=== PATIENT | male | born 1950 | race Caucasian/White ===

== ENCOUNTER 2016-12-17 08:39 | Outpatient (CLI) | payer MEDICARE ==
--- NOTE | 2016-12-17 13:24 | CT ---
CT OF THE ABDOMEN AND PELVIS WITH AND WITHOUT IV CONTRAST: INDICATIONS: History of prostate cancer, status post prostatectomy with hip pain. COMPARISON: Prior exam dated 10/19/2015 and prior bone scan dated 06/05/2016. FINDINGS: The large right renal peripelvic cyst is enlarged, now measuring 12.7 x 7.2 cm. There is now a smal l, 3 mm calculus involving the inferior pole of the right kidney. There are small right renal cysts present. No hydronephrosis is demonstrated. no gross, abnormally enhancing urothelial lesion is e vident. No focal filling defect is evident within the opacified renal collecting system. There are post surgical changes of a total prostatectomy, which are similar. No pathologically enla rged lymph nodes are evident within the pelvis or retroperitoneal region. There are moderate calcif ications involving the abdominopelvic vasculature. There are calcified lymph nodes involving the right infrahilar region. There is a calcified granulo ma within the right lower lobe. There is a small hiatal hernia. The adrenal glands, spleen, and li anastasia appear within normal limits. There has been interval enlargement of the sclerotic metastatic lesion involving the right anterior iliac wing on image 175 of series 3. The additional sclerotic metastasis involving the right ilium on image 174 of series 3 is stable. The sclerotic metastatic lesion involving the left L3 pedicle i s stable. IMPRESSION: 1. Worsening osseous metastatic disease. 2. Slight interval enlargement of the large right peripelvic cyst. 3. New right nephrolithiasis. No hydronephrosis or gross urothelial lesion is evident. 4. Other findings as above. POS: [facility]
[2016-12-17] MEDS ORDERED: Iopamidol 370 76% 100 ML VIAL ONE (15:57)
--- NOTE | 2016-12-17 16:19 | NM ---
WHOLE BODY BONE SCAN: Date: 12/17/16 HISTORY: Prostate cancer. RADIOPHARMACEUTICAL: 32 mCi technetium-99m MDP injected intravenously. COMPARISON: 06/05/16. CORRELATION: CT abdomen and pelvis of today and CT thoracic spine of 12/07/15. FINDINGS: There is interval increase in size of the abnormal uptake in the right iliac wing since the last jelly dy. There is mild increased uptake in the right-sided bridging osteophyte at T6-7 level (seen on the CT scan of 12/07/15). Increased uptake in the shoulders, elbows, wrists, hands, knees, ankles, and feet, consistent with d egenerative changes, are again seen. No new foci of increased uptake is seen in the skeleton. Tracer excretion through the kidneys is wit hin normal limits. IMPRESSION: Interval worsening of osseous metastatic disease since 06/05/16. POS: [facility]
== END 2016-12-17 08:40 | disposition home or self-care (01) ==
LOC: CT 08:39
PROVIDERS: ATTEND Urology
DX: C79.82 Secondary malignant neoplasm of genital organs (principal); C61 Malignant neoplasm of prostate; C79.51 Secondary malignant neoplasm of bone; N20.0 Calculus of kidney; K76.89 Other specified diseases of liver
CPT/HCPCS: 74178; 78306; A9503

== ENCOUNTER 2017-09-22 08:22 | Outpatient (CLI) | payer MEDICARE ==
--- NOTE | 2017-09-22 09:45 | CT ---
CT ABDOMEN AND PELVIS: DATE: 09/22/17. COMPARISON: 10/19/15 and 11/01/13. HISTORY: Restaging for prostate cancer. TECHNIQUE: Serial axial CT imaging obtained at 5 mm intervals from the lung bases through the pubic symphysis wi th IV contrast. Coronal reformatted imaging obtained. FINDINGS: The imaged lung bases appear grossly unremarkable. No free intraperitoneal air or fluid is seen. The liver, spleen, gallbladder, pancreas, and right adrenal gland are unremarkable. There is a small adrenal nodule on the left measuring up to approximately 1.1 cm, not significantly c hanged when compared to CT examination dating back to 11/01/13. The left kidney is unremarkable. There is a punctate nonobstructing stone in the upper pole of the right kidney, best seen on coronal image 97. There is a nonobstructing stone in the lower pole of the right kidney measuring in the 4 m m range. Multiple prominent right renal cysts are noted, stable when compared to multiple prior examinations. Small bilateral stable fat-containing inguinal hernias are present. The patient is status post prostatectomy. Postoperative clips are noted within the pelvis. There is no evidence for bowel inflammatory change or obstruction. There is mild atherosclerotic calcification of the abdominal aorta and its branches. There is no inguinal lymphadenopathy. There are no enlarged pelvic lymph nodes seen. There is no retroperitoneal lymphadenopathy noted. Review of the osseous structures demonstrates multiple sclerotic lesions suspicious for extensive oss eous metastatic disease. There is a lesion within the superior/lateral aspect of the acetabulum on t he right, new, measuring 2.4 cm in AP dimension. There is a subtle sclerotic lesion within the media l aspect of the acetabulum on the left measuring 1.3 cm, new as well. There is an expansile scleroti c lesion within the anterior aspect of the iliac wing on the right measuring 3.9 cm, markedly increas ed in size when compared to the prior examination. There is a new lesion within the left sacral alae measuring 1 cm. There is a lesion within the inferior anterior aspect of the L4 vertebral body, new. There is a stab le left L3 pedicle lesion. New subcentimeter lesion noted within L2. There are 2 new lesions within L1. There is a lesion within T12, T10, and T9, all 3 of which are new when compared to the prior ex amination. IMPRESSION: Numerous new sclerotic osseous metastatic lesions, evidence of progression of metastatic disease. CODE T POS: [facility]
--- NOTE | 2017-09-22 12:42 | NM ---
BONE SCAN: History: Malignant neoplasm of prostate. Dose: 33 mCi Technetium 99 MDP. Technique: Anterior and posterior whole body delayed images obtained. Comparison: 06-05-16 FINDINGS/IMPRESSION: Delayed bone scan images demonstrate interval development of extensive and too numerous to count meta static lesions now throughout the skeleton. Metastatic lesions seen in the calvarium, maxilla, mandib le, cervical spine, right scapula, right clavicle, left clavicle, left humerus, numerous ribs, thorac ic spine, lumbar spine, sacrum, iliac bones, right and left femur and a proximal right tibia. This is compatible with too numerous to count extensive increasing metastatic disease. POS: [facility]
[2017-09-22] MEDS ORDERED: Iopamidol 370 76% 100 ML VIAL ONE (12:51)
== END 2017-09-22 08:23 | disposition home or self-care (01) ==
LOC: CT 08:22
PROVIDERS: ATTEND Internal Medicine Medical Oncology
DX: C79.51 Secondary malignant neoplasm of bone (principal); C61 Malignant neoplasm of prostate
CPT/HCPCS: 74177; 78306; A9503

== ENCOUNTER 2018-02-02 14:08 | Emergency (ER) | payer MEDICARE ==
[2018-02-02] MEDS ORDERED: HYDROmorphone 0.5 MG/0.5 ML SYRINGE ONE (14:41)
[2018-02-02] MEDS ORDERED: HYDROcodone/Acetaminophen 10/325 mg Tablet ONE (15:21)
== END 2018-02-02 15:38 | disposition home or self-care (01) ==
LOC: ERS 14:08
DX: C61 Malignant neoplasm of prostate (principal); G89.29 Other chronic pain; M54.6 Pain in thoracic spine; I10 Essential (primary) hypertension; Z79.891 Long term (current) use of opiate analgesic; Z79.899 Other long term (current) drug therapy
CPT/HCPCS: 96374; J1170

== ENCOUNTER 2018-02-05 08:11 | Outpatient (CLI) | payer MEDICARE ==
--- NOTE | 2018-02-05 10:32 | MRI ---
MRI CERVICAL SPINE WITHOUT AND WITH CONTRAST: Date: 02/05/18 COMPARISON: Bone scan dated 09/22/17. HISTORY: Prostate cancer with bone metastasis. Evaluate for cord compression. TECHNIQUE: Multiplanar, multisequence MR images were obtained of the cervical spine without and with IV contrast . FINDINGS: There are multiple areas of abnormal marrow signal in the vertebral bodies consistent with bony metas tases. These areas demonstrate enhancement. No significant posterior extension of the vertebral pinky s is seen into the central canal to cause cord compression. No cortical breakthrough of the posterior vertebral bodies is appreciated to suggest cord compression. Visualized cord demonstrates normal signal throughout. The craniocervical junction is unremarkable. T he prevertebral and paraspinal soft tissues are unremarkable. No significant posterior bulge or protrusion is seen throughout the cervical spine. There is mild to moderate bilateral posterior facet arthrosis throughout the cervical spine. IMPRESSION: Multiple osseous metastases in the cervical spine without evidence of central canal compromise or cor d compression. POS: [facility]
[2018-02-05] MEDS ORDERED: Gadobenate Dimeglumine 529 MG/1 ML (20ML VIAL) ONE (13:22)
[2018-02-06 10:19] LABS: Estimated GFR-MDRD - POC Greater than 90
== END 2018-02-05 08:12 | disposition home or self-care (01) ==
LOC: MRI 08:11
PROVIDERS: ATTEND Radiology Radiation Oncology
DX: C79.51 Secondary malignant neoplasm of bone (principal); C61 Malignant neoplasm of prostate; M54.2 Cervicalgia
CPT/HCPCS: 36415; 72156; 80053; 82248; 82565; 83615; 84100; 84153; 84550; A9579

== ENCOUNTER 2018-03-14 09:53 | Emergency (ER) | payer MEDICARE ==
[2018-03-14 10:21] LABS: Bilirubin Negative (Negative); Blood, Urine Large (Negative); Clarity CLOUDY (Clear); Glucose, Urine (Dipstick) Negative (Negative); Leukocyte Trace (Negative); Nitrite Negative (Negative); Protein, Urine (Dipstick) 30 mg/dL (Neg-Trace); Specific Gravity, Urine 1.015 (1.002-1.036)
[2018-03-14 10:23] LABS: Bacteria/HPF None Seen HPF (None Seen); Hyaline Casts/LPF 0-3 HYALINE CAST LPF (0-3 Hyaline); RBC/HPF GREATER THAN 50-TNTC HPF (0-3); Squamous Epithelial 0-3 HPF (0-3)
[2018-03-14 10:24] LABS: #Eosinphils 0.1 thou/uL (0.0-0.7); #Lymphocytes 0.9 thou/uL (1.20-3.40); #Monocytes 0.5 thou/uL (0.11-0.59); #Neutrophils 5.9 thou/uL (1.40-6.50); %Basophils 0.1 % (0.0-1.0); %Eosinophils 1.7 % (0.0-10.0); %Lymphocytes 12.5 % (21.0-51.0); %Monocytes 6.8 % (0.0-10.0); %Neutrophils 78.9 % (42.0-75.0); Hemoglobin 11.8 g/dL (14.0-18.0); Mean Corpuscular HGB CONC 34.5 g/dL (32.0-36.0); Mean Corpuscular Hemoglobin 31.1 pg (27.0-31.0); Mean Corpuscular Volume 90.1 fL (78.0-98.0); Mean Platelet Volume 7.3 fL (7.4-10.4); Platelet Count 191 thou/uL (130-400); RBC Distribution Width 13.8 % (11.5-14.5); Red Blood Cell (RBC) Count 3.79 mill/uL (4.70-6.10); White Blood Cell (WBC) Count 7.4 thou/uL (4.8-10.8)
[2018-03-14 10:43] LABS: ALT (SGPT) 17 U/L (8-55); AST (SGOT) 22 U/L (5-34); Alkaline Phosphatase 498 U/L (40-150); Anion Gap 13 mmol/L (10-20); BUN (Urea Nitrogen) 19 mg/dL (8.4-25.7); Bilirubin, Total 0.4 mg/dL (0.2-1.2); Calc. Creatinine Clearance 0 mL/min (70-130); Calcium 8.5 mg/dL (7.8-10.44); Carbon Dioxide 23 mmol/L (23-31); Chloride 106 mmol/L (98-107); Estimated GFR-MDRD Greater than 90; Globulin 2.7 g/dL (2.4-3.5); Glucose 108 mg/dL (80-115); Potassium 3.8 mmol/L (3.5-5.1); Protein, Total 6.7 g/dL (5.8-8.1); Sodium 138 mmol/L (136-145)
[2018-03-14] MEDS ORDERED: Lidocaine 2% Jelly 5 ML TUBE TOP SCH (14:15)
--- NOTE | 2018-03-15 02:41 | CON ---
DATE OF CONSULTATION: 03/14/2018 HISTORY OF PRESENT ILLNESS: This is a 67-year-old white male I saw in the emergency room today. He is a patient of Dr. Chano Salazar. He has a history of prostate cancer, it is currently metastatic. He has been seeing Dr. Medrano and receiving second and third line of chemotherapy for this. He has had a radical prostatectomy and has also had radiation therapy. He has had off and on gross hematuria for the last week or so. It came and went, it came and went, and then it came and stayed. I talked with him earlier this morning and he tried staying at home to see if he could clear and it did not, he was passing some clots, so he came into the ER. His bladder was not distended on ultrasound and I think he had just over 100 mL. He was able to void 600 mL and I looked at his urine, it is mostly just light red to pink color, there are few small clots at the bottom of the container. He really does not look that bad. His platelet count is normal. He is afebrile with stable vital signs. I talked with him and his . I do not think he needs a Osullivan catheter and bladder irrigation, and I really do not think he even needs to be admitted as he is not at all having difficulty with urination. I think there is a very good chance that this hematuria will clear with rest and hydration which they certainly are feeling able and willing to do and would prefer that rather than coming into the hospital. I did ask him to contact Dr. Chano Salazar' office Friday. I do not know that she needs to see him, but her office does seem to know what has been going on with him. I also did talk with Dr. Medrano about him earlier today by phone. Job ID: [id number]
== END 2018-03-14 14:58 | disposition home or self-care (01) ==
LOC: ERS 09:53
DX: R31.9 Hematuria, unspecified (principal); I10 Essential (primary) hypertension; Z79.899 Other long term (current) drug therapy
CPT/HCPCS: 36415; 51798; 80053; 81003; 81015; 85025

== ENCOUNTER 2018-03-23 07:17 | Outpatient (CLI) | payer MEDICARE ==
[2018-03-23] MEDS ORDERED: Iopamidol 370 76% 100 ML VIAL ONE (09:00)
--- NOTE | 2018-03-23 09:58 | CT ---
CT ABDOMEN WITH AND WITHOUT IV CONTRAST CT PELVIS WITH AND WITHOUT IV CONTRAST: Date: 03/23/18 COMPARISON: Prior study from 11/01/13 and 12/17/16. FINDINGS: There is bibasilar linear scarring versus atelectasis. Calcified granuloma seen at the right lung bas e. Calcified right hilar lymph nodes are present. Punctate superior pole right renal calculus, as well as an approximately 4.0 mm nonobstructing inferi or pole right renal calculus are again seen. The previously described right renal cysts are again see n and are all unchanged. A few smaller subcentimeter hypodense lesions are also again seen in the rig ht kidney. Left kidney has a normal CT appearance. There is slight nodular thickening of the left adrenal gland, which is a stable finding compared to t he prior exams. The liver, spleen, pancreas, and incompletely distended urinary bladder demonstrate a normal CT appea shu. A punctate calcification is seen in the region of the pancreatic head, likely sequelae of prio r inflammatory process. Postsurgical changes related to prostatectomy are again present. Vascular calcifications are seen in the abdominal aorta and iliac arteries. Loops of small bowel are normal in caliber. No free fluid, fluid collection, or lymphadenopathy seen in the abdomen or pelvis. Innumerable sclerotic metastatic lesions are seen. However, these metastatic lesions have progressed within the spine, and visualized lower ribs, as well as involving the pelvis when compared to the sam or study in 2017, with innumerable osseous sclerotic metastatic lesions present. New sclerotic lesion is present within the intertrochanteric region of the right hip. Innumerable sclerotic metastatic le sions are now seen throughout the visualized lower thoracic, as well as the lumbar spine, and involvi ng bilateral ribs. Osseous metastatic lesions have also progressed compared to study on 09/22/17. IMPRESSION: 1. Interval increase in osseous metastatic disease with innumerable metastatic lesions now present. 2. Nonobstructing right renal calculi. 3. Large right renal cyst with smaller subcentimeter hypodense lesion within the right kidney, stati stically also likely representing cysts. 4. Remainder of findings are as described above. POS: [facility]
== END 2018-03-23 07:18 | disposition home or self-care (01) ==
LOC: BICCT 07:17 → SCSCT 07:18
PROVIDERS: ATTEND Urology
DX: Q61.01 Congenital single renal cyst (principal); R31.0 Gross hematuria; C79.82 Secondary malignant neoplasm of genital organs; N20.0 Calculus of kidney; N28.9 Disorder of kidney and ureter, unspecified; C79.51 Secondary malignant neoplasm of bone; C80.1 Malignant (primary) neoplasm, unspecified; N32.89 Other specified disorders of bladder; J84.10 Pulmonary fibrosis, unspecified; I89.8 Other specified noninfective disorders of lymphatic vessels and lymph nodes; E27.8 Other specified disorders of adrenal gland; K86.89 Other specified diseases of pancreas; I70.0 Atherosclerosis of aorta; I70.8 Atherosclerosis of other arteries; Z90.79 Acquired absence of other genital organ(s)
CPT/HCPCS: 74178

== ENCOUNTER 2018-09-24 11:14 | Day surgery (SDC) | payer MEDICARE ==
[2018-09-24] MEDS ORDERED: diphenhydrAMINE 25 MG CAP PO SCH (12:15)
[2018-09-24] MEDS ORDERED: Acetaminophen 500 MG TAB PO SCH (12:15)
[2018-09-24 14:33] LABS: Hemoglobin 8.2 g/dL (14.0-18.0)
[2018-09-24 16:59] VITALS: TEMP 98.8
[2018-09-24 17:01] VITALS: BP 139/65
== END 2018-09-24 17:01 | disposition home or self-care (01) ==
LOC: ONC/OP 11:14
PROVIDERS: ATTEND Internal Medicine Medical Oncology
PROC: 30233N1 Transfusion of Nonautologous Red Blood Cells into Peripheral Vein, Percutaneous Approach (ICD-10-PCS; principal; 2018-09-24)
DX: D64.9 Anemia, unspecified (principal); D69.6 Thrombocytopenia, unspecified
CPT/HCPCS: 36430; 85014; 85018; 86850; 86900; 86901; P9016; Q0163

== ENCOUNTER 2018-10-22 10:51 | Day surgery (SDC) | payer MEDICARE ==
[2018-10-22] MEDS ORDERED: Acetaminophen 500 MG TAB ONE (11:10)
[2018-10-22] MEDS ORDERED: diphenhydrAMINE 25 MG CAP ONE (11:10)
[2018-10-22] MEDS ORDERED: diphenhydrAMINE 25 MG CAP PO SCH (11:15)
[2018-10-22] MEDS ORDERED: Acetaminophen 500 MG TAB PO SCH (11:15)
[2018-10-22] MEDS ORDERED: Furosemide 40 MG TAB PO SCH (11:15)
[2018-10-22] MEDS ORDERED: Sodium Chloride 0.9% 10 ML ONE (11:36)
[2018-10-22 13:44] LABS: Hemoglobin 8.6 g/dL (14.0-18.0)
[2018-10-22 15:53] VITALS: BP 148/71; TEMP 97
[2018-10-22 16:02] LABS: #Lymphocytes 0.5 thou/uL (1.20-3.40); #Monocytes 0.2 thou/uL (0.11-0.59); #Neutrophils 2.7 thou/uL (1.40-6.50); %Basophils 0.1 % (0.0-1.0); %Eosinophils 1.1 % (0.0-10.0); %Lymphocytes 13.4 % (21.0-51.0); %Monocytes 4.4 % (0.0-10.0); Hemoglobin 10.5 g/dL (14.0-18.0); Mean Corpuscular HGB CONC 33.7 g/dL (32.0-36.0); Mean Corpuscular Hemoglobin 31.1 pg (27.0-31.0); Mean Corpuscular Volume 92.1 fL (78.0-98.0); Mean Platelet Volume 7.4 fL (7.4-10.4); Platelet Count 194 thou/uL (130-400); RBC Distribution Width 16.2 % (11.5-14.5); Red Blood Cell (RBC) Count 3.37 mill/uL (4.70-6.10); White Blood Cell (WBC) Count 3.3 thou/uL (4.8-10.8)
== END 2018-10-22 16:21 | disposition home or self-care (01) ==
LOC: SDC/OP 10:51
PROVIDERS: ATTEND Internal Medicine Medical Oncology
PROC: 30233N1 Transfusion of Nonautologous Red Blood Cells into Peripheral Vein, Percutaneous Approach (ICD-10-PCS; principal; 2018-10-22)
DX: D64.9 Anemia, unspecified (principal); C61 Malignant neoplasm of prostate
CPT/HCPCS: 36430; 84153; 85014; 85018; 85025; 86850; 86900; 86901; 86920; P9016; 36415; Q0163

== ENCOUNTER 2018-11-05 11:03 | Outpatient (CLI) | payer MEDICARE ==
--- NOTE | 2018-11-05 11:41 | RAD ---
2 views right hip: 11/05/2018 COMPARISON: None HISTORY: Fall, trauma, pain, history of prostate cancer with osseous metastatic disease FINDINGS: There is a sclerotic lesion within the right iliac bone superior to the acetabulum. There i s prominent sclerotic lesion along the superior and lateral aspect of the right iliac crest. There is a small sclerotic lesion within the proximal right femoral shaft. There is also a sclerotic lesion in the intertrochanteric region of the proximal right femur. These findings are consistent with osseous metastatic disease. No acute fracture or evidence of dislocation. There is mild superior joint space narrowing involving the right hip with mild right acetabular osteo phyte formation. IMPRESSION: Sclerotic metastatic disease. No displaced fracture or evidence of dislocation.
--- NOTE | 2018-11-05 11:42 | RAD ---
Frontal and lateral imaging of the right femur: 11/05/2018 COMPARISON: None HISTORY: Fall, trauma, pain FINDINGS: Multiple subcentimeter sclerotic foci are noted within the mid and distal right femoral sha ft, evidence of osseous metastatic disease. No acute fracture. IMPRESSION: Osseous metastatic disease. No evidence for acute right femur fracture.
== END 2018-11-05 11:04 | disposition home or self-care (01) ==
LOC: BICRAD 11:03
PROVIDERS: ATTEND Internal Medicine Hematology & Oncology
DX: C79.51 Secondary malignant neoplasm of bone (principal); C61 Malignant neoplasm of prostate; Z91.81 History of falling

== ENCOUNTER 2018-11-27 08:28 | Outpatient (CLI) | payer MEDICARE ==
--- NOTE | 2018-11-27 09:38 | CT ---
EXAM: CT Abdomen Pelvis W Con PROVIDED CLINICAL HISTORY: Prostate cancer COMPARISON: 03/23/2018 FINDINGS: The visualized lung bases are free of significant opacity. The liver, spleen, pancreas, kidneys and adrenal glands demonstrate a stable CT appearance. There is no bowel dilatation, inflammatory fat stranding, free fluid or lymph node enlargement appare nt. Postoperative changes of prior prostatectomy are seen. Bilateral fat-containing inguinal hernias. Scattered vascular calcifications are seen. Diffuse osteoblastic osseous metastatic disease is redemo nstrated, without significant interval change from prior apparent. IMPRESSION: Stable exam.
[2018-11-27] MEDS ORDERED: Iopamidol 370 76% 100 ML VIAL ONE (11:58)
== END 2018-11-27 08:29 | disposition home or self-care (01) ==
LOC: CT 08:28
PROVIDERS: ATTEND Internal Medicine Hematology & Oncology
DX: C61 Malignant neoplasm of prostate (principal); C79.51 Secondary malignant neoplasm of bone
CPT/HCPCS: 74177

== ENCOUNTER 2019-04-02 16:45 | Observation (INO) | payer MEDICARE ==
[2019-04-02 19:35] VITALS: BMI 27.3
[2019-04-02] MEDS ORDERED: Acetaminophen 500 MG TAB PO SCH (20:00)
[2019-04-02] MEDS ORDERED: diphenhydrAMINE 25 MG CAP PO SCH (20:00)
[2019-04-03 03:44] VITALS: BP 135/67; TEMP 98.6
[2019-04-03 04:22] LABS: Hemoglobin 7.5 g/dL (14.0-18.0); Mean Corpuscular HGB CONC 33.2 g/dL (32.0-36.0); Mean Corpuscular Hemoglobin 30.2 pg (27.0-31.0); Platelet Count 95 thou/uL (130-400); RBC Distribution Width 17.5 % (11.5-14.5); White Blood Cell (WBC) Count 5.4 thou/uL (4.8-10.8)
[2019-04-03 04:32] LABS: Band 7 % (5-11); Eosinophils 1 % (0-10); Lymphocytes 17 % (21-51); MDiff Complete? YES; Metamyelocyte 2 % (0-0); Monocytes 6 % (0-10); Myelocyte 1 % (0-0); Neutrophil 66 % (42-75); Nucleated RBC 2 % (0); Platelet Morphology Comment Appears Decreased
== END 2019-04-03 04:01 | disposition home or self-care (01) ==
LOC: SDC/OP 16:45 → 2SW 19:17
PROVIDERS: ADMIT Internal Medicine Medical Oncology; ATTEND Internal Medicine Medical Oncology
PROC: 30233N1 Transfusion of Nonautologous Red Blood Cells into Peripheral Vein, Percutaneous Approach (ICD-10-PCS; principal; 2019-04-02)
DX: D64.9 Anemia, unspecified (principal)
CPT/HCPCS: 36430; 85025; 86850; 86900; 86901; 86920; P9016 ×2; 36415; Q0163

== ENCOUNTER 2019-04-09 10:16 | Observation (INO) | payer MEDICARE ==
[2019-04-09 11:25] LABS: ALT (SGPT) 17 U/L (8-55); AST (SGOT) 41 U/L (5-34); Albumin 3.2 g/dL (3.4-4.8); Alkaline Phosphatase 2122 U/L (40-110); Anion Gap 13 mmol/L (10-20); BUN (Urea Nitrogen) 21 mg/dL (8.4-25.7); Bilirubin, Total 0.5 mg/dL (0.2-1.2); Calc. Creatinine Clearance 0 mL/min (70-130); Carbon Dioxide 19 mmol/L (23-31); Chloride 108 mmol/L (98-107); Estimated GFR-MDRD Greater than 90; Globulin 2.8 g/dL (2.4-3.5); Glucose 100 mg/dL (80-115); Potassium 4.2 mmol/L (3.5-5.1); Sodium 136 mmol/L (136-145)
[2019-04-09 11:32] LABS: #Eosinphils 0.1 thou/uL (0.0-0.7); #Lymphocytes 0.8 thou/uL (1.20-3.40); #Monocytes 0.5 thou/uL (0.11-0.59); #Neutrophils 3.9 thou/uL (1.40-6.50); %Basophils 0.1 % (0.0-1.0); %Eosinophils 1.8 % (0.0-10.0); %Lymphocytes 15.2 % (21.0-51.0); %Monocytes 9.5 % (0.0-10.0); %Neutrophils 73.3 % (42.0-75.0); Hemoglobin 6.9 g/dL (14.0-18.0); Mean Corpuscular HGB CONC 33.1 g/dL (32.0-36.0); Mean Corpuscular Hemoglobin 30.7 pg (27.0-31.0); Mean Corpuscular Volume 92.8 fL (78.0-98.0); Mean Platelet Volume 8.6 fL (7.4-10.4); Platelet Count 108 thou/uL (130-400); RBC Distribution Width 17.6 % (11.5-14.5); Red Blood Cell (RBC) Count 2.23 mill/uL (4.70-6.10); White Blood Cell (WBC) Count 5.3 thou/uL (4.8-10.8)
--- NOTE | 2019-04-09 11:32 | CT ---
Exam: Facial bone CT scan without IV contrast: HISTORY: Facial injury following a fall, history of prostate CTA FINDINGS: There is evidence for an acute minimally displaced and depressed orbital floor fracture particularly anteriorly with hemorrhage within the right maxillary sinus. Nondisplaced fracture of the lateral wall of the right maxillary sinus and possibly a small focal fracture of the medial wall of the right maxillary sinus. Moderate frontal sinus mucosal disease worse on the right side. Minimal sinus mucosal disease within the right ethmoid sinus and left maxillary sinus and sphenoid sinus regions. L ateral orbital wall appears intact. Zygomatic arches are intact. Small focus of extra-axial hemorrhage involving the right frontal region documented on the prior CT s can. The mastoids appear clear. Multiple sclerotic foci within the visualized cervical spine including C2, C3, C4, and C5 evidence for prostate metastasis. IMPRESSION: Sinus mucosal disease. Minimally displaced and depressed orbital floor fracture. Nondisplaced fracture of the right maxillary sinus lateral and medial valadez with hemorrhage within th e right maxillary sinus. Sclerotic foci particularly in the cervical spine evidence for prostate bone metastasis.
--- NOTE | 2019-04-09 11:42 | CT ---
CT BRAIN PERFORMED WITHOUT CONTRAST ENHANCEMENT: Date: 04/09/2019 HISTORY: Head injury post fall. FINDINGS: There is some generalized ventricular and sulcal prominence. There are tiny acute blood collections i n extra-axial space which appear to represent small subdural hematomas. One is seen on axial image 10 within the right frontal lobe and two very subtle areas over the left frontal convexity, axial image 14 and axial image 20. There is also suggestion that there may be a small amount of subarachnoid blo od in the right sylvian fissure. No intraparenchymal hemorrhage. Please refer to the CT facial bones report concerning these findings. IMPRESSION: Tiny acute extra-axial blood collections over the right and left frontal convexity, probably small kevin bdural collections. There is also suggestion of a small amount of subarachnoid blood within the right sylvian fissure. Short-term follow-up CT to assess for stability would be recommended. POS: [facility]
[2019-04-09] MEDS ORDERED: Dextrose 50% Abboject 50 ML SYRINGE SLOW IVP PRN (13:16)
[2019-04-09] MEDS ORDERED: Dextrose 5% in Water 1,000 ML IV PRN (13:16)
[2019-04-09] MEDS ORDERED: Ondansetron ODT 4 MG TAB PO PRN (13:16)
[2019-04-09] MEDS ORDERED: Ondansetron PF 4 MG/2 ML Vial IVP PRN (13:16)
[2019-04-09] MEDS ORDERED: Lorazepam 2 MG/ML VIAL SLOW IVP PRN (13:16)
[2019-04-09] MEDS ORDERED: Ibuprofen 600 MG TAB PO PRN (13:30)
[2019-04-09 13:42] LABS: Magnesium 2.1 mg/dL (1.6-2.6)
--- NOTE | 2019-04-09 14:41 | RAD ---
PORTABLE CHEST: Date: 04/09/2019 HISTORY: Patient is status post fall. History of prostate cancer. FINDINGS: Heart size and mediastinum are within normal limits. Sclerotic bone lesions are demonstrated, consist ent with a history of metastatic bone disease. Some of the areas along the right anterior and left ri bs are somewhat expanded. This could represent some expansion of the bone or associated pleural based density. I do not see any signs of any acute fractures. IMPRESSION: 1. Blastic osseous metastatic disease. 2. No acute injury. 3. Linear scarring left lung base. POS: [facility]
--- NOTE | 2019-04-09 16:54 | CON ---
DATE OF CONSULTATION: Mr. 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 He had a fall last night where he struck his face resulting in bruising and pain with a small laceration over the right zygomatic arch anteriorly. Neurosurgery was consulted for CT scan revealing bilateral frontotemporal hygromatous appearing fluid collections in the subdural space as well as areas of small but more acute to subacute appearing hyperdensity, likely subdural blood. This could certainly have been from his fall last night. All of these are rather small in nature and appear to provide no compressive force to the underlying parenchyma. On examination, he is alert and oriented x3. His bilateral upper and lower extremity motor exam are unremarkable. Sensation is fully intact in bilateral upper, lower extremities, trunk, chest, and back. Cranial nerves all intact, although his eyes are both dilated secondary to seeing his eye doctor where they provided medications for this purpose for eye examination. He has a little bit of restricted motor function in the right eye, which is likely secondary to orbital floor fractures as seen on CT. From Neurosurgery's perspective, the subdural hemorrhages are nonoperative definitively, but only repeat scan during his hospital stay if he were to have change in neurologic function. Otherwise, Neurosurgery plans to see him in 4 to 6 weeks with outpatient followup and repeat CT scanning at that time. He will need to refrain from any NSAIDs or other blood thinning medications, though he does not take any at baseline anyway. Neurosurgery will sign off at this time, but recommend re-consultation pending any neurologic status change. Job ID: [id number]
[2019-04-09 18:00] VITALS: BMI 27.3
--- NOTE | 2019-04-09 20:24 | HP ---
CHIEF COMPLAINT: Fall. HISTORY OF PRESENT ILLNESS: This is a 68-year-old gentleman who reports getting ice cream out of his freezer last night when he fumbled with it trying to grab it without hitting the floor, which led to him losing balance and falling. The patient denies feeling weak, dizzy, or having any chest pain or shortness of breath prior to the event. The patient denies any loss of consciousness. The patient denies being on any blood thinners. The patient does have a significant history of prostate cancer, in which he stopped receiving chemo treatment in December as it was not helping and he also has metastasis to his bones. The patient did receive 2 units of blood on 04/02/2019 for hemoglobin of 5.9. The patient reports pain to the right cheek, right eye and nose. The patient went to see his primary care physician and was sent to the ER for evaluation of his right eye. The patient denies any nausea or vomiting. The patient's denies any change in mental status. The patient was worked up in the emergency room and found to have a right orbital wall fracture and also a small bilateral frontal subdural hematoma. Neurosurgery and OMFS were consulted by the ER physician. Trauma Services was asked to admit the patient for observation and q.4 neuro checks. ALLERGIES: NO KNOWN DRUG ALLERGIES. PAST MEDICAL HISTORY: Prostate cancer with bone metastasis, anemia, last chemo on 12/27/2018. PAST SURGICAL HISTORY: Prostate removal, hernia repair. SOCIAL HISTORY: Denies alcohol use. Denies drug use. Denies smoking history. MEDICATIONS: 1. Amlodipine 10 mg once a day. 2. Fluoxetine 20 mg once a day. 3. Lisinopril/hydrochlorothiazide 20/12.5 mg once a day. 4. Prednisone 5 mg twice a day. 5. Oxybutynin chloride extended release 10 mg oral once a day. 6. Hydrocodone/acetaminophen 7.5/325 mg every 4 to 6 hours p.r.n. pain. 7. Methadone 10 mg oral three times a day. OBJECTIVE: VITAL SIGNS: Blood pressure 110/58, pulse 67, respirations 18, temperature 98.4, and SpO2 of 97% on room air. GENERAL: Elderly male, awake, alert, and oriented, sitting up in the ER bed. HEENT: Head is normocephalic. Ecchymosis to upper nose with abrasion. Extraocular muscles intact. Mucous membranes are moist. Bilateral tympanic membranes normal. NECK: Normal range of motion. No cervical tenderness. Trachea midline. RESPIRATORY: Equal chest rise and fall. Bilateral breath sounds clear. No wheezing, rales, or rhonchi. CARDIOVASCULAR: Regular rate, regular rhythm. No murmurs. ABDOMEN: Soft, nontender, and nondistended. EXTREMITIES: Moves all extremities. No focal deficits. Pelvis is stable. Normal range of motion and normal strength. Distal pulses intact. The patient does have a skin tear to the right palmar surface of the left hand and left forearm. NEUROLOGIC: GCS 15. Cranial nerves 2 through 12 intact. Normal speech. LABORATORY DATA: WBC 5.3, RBC 2.23, hemoglobin 6.9, hematocrit 20.7, platelets 108. Sodium 136, potassium 4.2, chloride 108, BUN 21, creatinine 0.72, estimated GFR 90, glucose 100, calcium 8.0, phosphorus 1.0, magnesium 2.1. AST 41, ALT 17, alkaline phosphatase 2122, and albumin 3.2. DIAGNOSTICS: Facial bone CT; impression, sinus mucosal disease, minimally displaced and depressed orbital floor fracture, nondisplaced fracture of the right maxillary sinus lateral and medial valadez with hemorrhage within the right maxillary sinus. Sclerotic foci particularly in the cervical spine. Evidence for prostate bone metastasis. Brain CT; impression, tiny acute extra-axial blood collections over the right and left frontal convexity, probably small subdural collections. There is also suggestion of a small amount of subarachnoid blood within the right sylvian fissure. Chest x-ray; impression, no acute cardiopulmonary process, pending official read. ASSESSMENT: 1. Status post fall from standing with delayed presentation. 2. Orbital wall fracture. 3. Small subdural frontal hemorrhage and small subarachnoid hemorrhage. 4. Chronic anemia. 5. Hypophosphatemia. 6. History of prostate cancer with bone metastasis. PLAN: Admit patient for observation with q.4 hours neuro checks. Neurosurgery has evaluated the patient and reports no need for repeat head CT in the morning unless something changes dramatically. Oral Maxillofacial Surgery was consulted by the ER physician and reports that they will evaluate the patient today or in the morning. We will place the patient on a regular diet as tolerated. We will place the patient on his home pain regimen. We will have Physical and Occupational Therapy work with patient. We will replace electrolytes. Pending facial surgeries recommendations and if there are no neurologic changes, most likely the patient will be discharged home tomorrow. The plan will be discussed with the attending after this dictation. Job ID: [id number]
--- NOTE | 2019-04-10 00:34 | PRG ---
DATE OF SERVICE: 04/10/2019 SUBJECTIVE: This is a 68-year-old male, who presented to [facility] status post fall. The patient was found to have mild TBI with subdural and subarachnoid hemorrhage. He was additionally found to have an orbital wall fracture. He was admitted for observation and evaluation by Neurosurgery in [facility]. Neurosurgery has seen and evaluated the patient. They will follow up in outpatient clinic in 4 to 6 weeks. He is currently awaiting evaluation by [facility]. Upon my evaluation this evening, the patient vocalized no complaints. OBJECTIVE: VITAL SIGNS: Reviewed and as documented in electronic medical record. GENERAL: Elderly appearing male, in no acute distress, resting in bed. HEENT: Right cheek laceration is clean and dry. He is status post repair, clean, dry, and intact. PULMONARY: Normal work of breathing. Symmetric rise. CARDIOVASCULAR: Regular rate and rhythm. GI: Abdomen is soft, nontender, nondistended. MUSCULOSKELETAL: Moves all extremities x4. NEUROLOGIC: No focal deficit is noted. ASSESSMENT: 1. Status post fall from standing. 2. Orbital wall fracture. 3. Subdural hemorrhage and subarachnoid hemorrhage. 4. Chronic anemia. 5. Hypophosphatemia. 6. History of prostate cancer with bone metastasis. PLAN: Continue supportive care as ordered. Continue pain management as ordered. Await OMFS recommendations. Plan of care was discussed with the patient at bedside. All questions were answered prior to this dictation. Job ID: [id number]
[2019-04-10 05:37] LABS: Anion Gap 10 mmol/L (10-20); BUN (Urea Nitrogen) 18 mg/dL (8.4-25.7); Calc. Creatinine Clearance 109 mL/min (70-130); Calcium 7.8 mg/dL (7.8-10.44); Carbon Dioxide 22 mmol/L (23-31); Chloride 109 mmol/L (98-107); Estimated GFR-MDRD Greater than 90; Glucose 94 mg/dL (80-115); Magnesium 2.1 mg/dL (1.6-2.6); Phosphorus Less than 1.0 mg/dL (2.3-4.7); Potassium 4.3 mmol/L (3.5-5.1); Sodium 137 mmol/L (136-145)
[2019-04-10] MEDS ORDERED: Sodium Phosphate 30 MMOL in Sodium Chloride 0.9% 250 ML 250 ML IVPB SCH (06:30)
[2019-04-10 06:43] LABS: Band 13 % (5-11); Eosinophils 2 % (0-10); Hemoglobin 6.3 g/dL (14.0-18.0); Lymphocytes 13 % (21-51); MDiff Complete? YES; Mean Corpuscular HGB CONC 32.2 g/dL (32.0-36.0); Mean Corpuscular Hemoglobin 29.6 pg (27.0-31.0); Mean Corpuscular Volume 91.9 fL (78.0-98.0); Mean Platelet Volume 7.9 fL (7.4-10.4); Monocytes 5 % (0-10); Myelocyte 1 % (0-0); Neutrophil 65 % (42-75); Platelet Count 105 thou/uL (130-400); Platelet Morphology Comment Appears Decreased; RBC Distribution Width 17.3 % (11.5-14.5); Red Blood Cell (RBC) Count 2.11 mill/uL (4.70-6.10); White Blood Cell (WBC) Count 5.3 thou/uL (4.8-10.8)
[2019-04-10] MEDS ORDERED: TETANUS AND DIPHTHERIA TOX/PF 0.5 ML DISP.SYRIN IM ONE (13:16)
[2019-04-10 17:37] VITALS: BP 132/78; TEMP 98.6
--- NOTE | 2019-04-12 13:20 | DIS ---
DATE OF ADMISSION: 04/09/2019 DATE OF DISCHARGE: 04/10/2019 This is Tiffany Prater NP dictating a report for Isaac Haney MD. DISCHARGE ATTENDING: Isaac Haney MD CONSULTS: 1. OMFS, Dr. Monge. 2. Neurosurgery, Dr. Browning. PROCEDURES: On 04/09/2019, facial bone CT, impression; minimally displaced and depressed orbital floor fracture. Nondisplaced fracture of the right maxillary sinus lateral medial valadez with hemorrhage with right maxillary sinus. Sclerotic foci particularly in the cervical spine. Evidence for prostatic bone metastasis. Brain CT impression, tiny acute extra-axial blood collections over the right and left frontal convexity, probably small subdural collections. Chest x-ray impression; linear scarring, left lung base. Blastic osseous metastatic disease. PRIMARY DIAGNOSES: Status post fall from standing with delayed presentation, orbital wall fracture, small subdural frontal hemorrhage, small subarachnoid hemorrhage, chronic anemia, hypophosphatemia, and history of prostate cancer with bone metastasis. DISCHARGE MEDICATIONS: 1. Acetaminophen 1 g p.o. q.6 hours for pain. 2. Bactrim topical. 3. Clonazepam 1 mg p.o. at bedtime. 4. Dexamethasone 0.5 mg p.o. b.i.d. 5. Prozac 20 mg at bedtime. 6. Hydrocodone 10/325 one tab p.o. q.6 hours. 7. Lisinopril 5 mg p.o. daily. 8. Methadone 10 mg p.o. 3 times a day. 9. Multivitamin p.o. daily. 10. Zofran 8 mg q.12 hours p.r.n. 11. Ditropan XL 10 mg p.o. daily. 12. Lyrica 50 mg p.o. b.i.d. HISTORY OF PRESENT ILLNESS AND HOSPITAL COURSE: This is a 68-year-old gentleman , who reports getting ice cream out of his freezer the night before when he fumbled with it, trying to grab it without hitting the floor causing him to lose his balance and fall. The patient denied any weakness, dizziness, shortness of breath, or chest pain prior to the event. The patient denies any loss of consciousness. The patient denies being on any blood thinners. The patient does have a significant history of prostate cancer, in which he stopped receiving chemo treatment in December as that was not helping and also has bone metastasis. The patient did receive 2 units of blood on 04/02/2019 for hemoglobin of 5.9. On admission, the patient and family denied blood transfusions for his anemia. Trauma Services were asked to admit the patient for his orbital wall fracture. Reports that OM will be seeing the patient in the morning. The patient was admitted to the surgical floor with q.4 hours neuro checks. The patient's neuro status was unchanged during his hospital stay. The patient did receive 1 unit of packed red blood cells earlier this morning. [facility] states the patient is to follow up outpatient. The patient did have some bloody stools, but did not want any treatment or GI to be consulted. On the day of discharge, the patient was examined by Dr. Haney. The patient was deemed stable for discharge. The patient's exam was unremarkable including cardiopulmonary and GI exam. The patient denies any dizziness or weakness. The patient was discharged home. He was instructed to avoid NSAIDS or any blood thinning products until follow up with Neurosurgery. DISPOSITION: Stable. INSTRUCTIONS: Home. Diet, regular diet. Activity, activity as tolerated. FOLLOWUP: Follow up with Dr. Browning in 4-6 weeks with repeat head CT. Follow up with Dr. Monge in 10 to 14 days. Follow up with Oncologist, keep scheduled appointment. Job ID: [id number] MTDD
== END 2019-04-10 17:46 | disposition home or self-care (01) ==
LOC: ERS 10:16 → SURG B 15:16
PROVIDERS: ADMIT Student in an Organized Health Care Education/Training Program; ATTEND Student in an Organized Health Care Education/Training Program
DX: S02.31XA Fracture of orbital floor, right side, initial encounter for closed fracture (principal); S02.19XA Other fracture of base of skull, initial encounter for closed fracture; S06.6X0A Traumatic subarachnoid hemorrhage without loss of consciousness, initial encounter; S06.5X0A Traumatic subdural hemorrhage without loss of consciousness, initial encounter; C61 Malignant neoplasm of prostate; C79.51 Secondary malignant neoplasm of bone; D64.9 Anemia, unspecified; E83.39 Other disorders of phosphorus metabolism; I10 Essential (primary) hypertension; Z79.899 Other long term (current) drug therapy; W18.30XA Fall on same level, unspecified, initial encounter
CPT/HCPCS: 36430; 70450; 70486; 71045; 80048; 80053; 83735 ×2; 84100 ×2; 85007; 85025; 85027; 86850; 86900; 86901; 86920; 93005; 96365; 96366; 97116; 97139 ×2; 99285; G0378 ×3; P9016; 36415; J7050

== ENCOUNTER 2019-04-16 08:17 | Day surgery (SDC) | payer MEDICARE ==
[2019-04-15 15:26] VITALS: BMI 27.8
[2019-04-16] MEDS ORDERED: PROPOFOL 200 MG/20 ML VIAL ONE (10:23)
[2019-04-16] MEDS ORDERED: Fentanyl 100 MCG/2 ML VIAL ONE (11:21)
--- NOTE | 2019-04-16 16:02 | OP ---
DATE OF PROCEDURE: 04/16/2019 PROCEDURES PERFORMED: Esophagogastroduodenoscopy with biopsy, colonoscopy with polypectomy and control of bleeding. INDICATIONS FOR PROCEDURE: Anemia and hematochezia. DESCRIPTION OF PROCEDURE: After the risks and benefits of the procedures were explained to the patient including risks of bleeding, infection, perforation, reactions to anesthesia, aspiration and/or pain, informed consent was obtained. The patient was then taken to the endoscopy suite, where he was placed in the left lateral decubitus position followed by administration of deep sedation via propofol and anesthesia support. Once adequate sedation was achieved, the standard gastroscope was introduced into the mouth with intubation of the esophagus, stomach, and the proximal small intestines with the findings listed below. The patient tolerated the procedure well with no immediate perioperative complications. Upon conclusion of the procedure, all equipment was removed from the patient, and the bed was rotated 180 degrees in anticipation of a colonoscopy. A digital rectal examination was then performed followed by introduction of the standard colonoscope, which was then advanced to the terminal ileum without difficulty. The quality of the prep was initially fair, but converted to a good prep with aggressive irrigation and suctioning. The patient tolerated the procedure well with no immediate perioperative complications. Upon conclusion of the procedure, all equipment was removed from the patient, and he was transferred to Day Stay in satisfactory condition. EGD FINDINGS: Esophagus: Numerous small white plaques measuring 1 to 2 mm in diameter were seen in the proximal and mid esophagus without any associated erosions or ulcerations. Biopsies were taken from this region for evaluation of possible esophageal candidiasis. However, normal-appearing mucosa was seen in the distal esophagus with the diaphragmatic pinch and GE junction both seen at 39 cm past the incisors. There was no evidence of erosions, ulcerations, mass lesions, or active/recent bleeding. Stomach: Normal-appearing mucosa was seen in the gastric cardia, fundus, body, greater curvature, antrum, and incisura. There was no evidence of erosions, ulcerations, mass lesions, or active/recent bleeding. Duodenum: Normal-appearing mucosa was seen in both the duodenal bulb and second portion of the duodenum. There was no evidence of erosions, ulcerations, mass lesions, or active/recent bleeding. Multiple random biopsies were taken from the duodenal bulb and second portion of the duodenum for evaluation of possible celiac sprue. IMPRESSION: 1. Small white plaques in the proximal esophagus concerning for esophageal candidiasis, status post biopsies. 2. Otherwise, normal upper endoscopy. COLONOSCOPY FINDINGS: Digital rectal exam: Small external hemorrhoids were seen on external examination without any evidence of active bleeding. Scar tissue was palpated on rectal examination as well along the anterior colonic wall. Colon findings: Normal-appearing mucosa was seen within the terminal ileum as well as at the ileocecal valve and appendiceal orifice. A moderate amount of retained semi-solid and liquid stool was seen in the cecum, ascending colon, and transverse colon that was amenable to aggressive irrigation and suctioning converting a fair prep into a good prep. Of the mucosa seen, normal-appearing mucosa was seen in the cecum. However, a 3 to 4 mm polyp was seen in the ascending colon and completely removed with cold snare polypectomy. It was retrieved and placed in a specimen jar for further evaluation. Normal-appearing mucosa was then seen in the distal ascending, transverse, descending, and sigmoid colons. Multiple small telangiectasias were seen in the rectum immediately adjacent to the dentate line and extending proximally around 3 to 4 cm. They did not display any evidence of active or recent bleeding. However, given the patient's recent bouts with hematochezia, this was considered a likely source of that particular condition. Subsequently, argon plasma coagulation was then employed with a superficial cautery applied to these telangiectasias with good hemostasis achieved. There was some mild oozing of blood at the end of the maneuver, but was clinically insignificant. Small internal hemorrhoids were seen on rectal retroflexion. IMPRESSION: 1. A 3 to 4 mm ascending colon polyp, status post cold snare polypectomy. 2. Small internal and external hemorrhoids. 3. [id number] radiation proctitis, status post argon plasma coagulation with good hemostasis achieved. RECOMMENDATIONS: 1. We would continue to monitor the patient clinically for signs of active GI bleeding (he may bleed, he may have some hematochezia for the next 48 hours as the rectum heals). 2. We would recommend a low-fiber diet for the next 48 to 72 hours, then progress to a higher fiber diet to facilitate passage of stool. 3. We will follow up on the polyp results with repeat colonoscopy interval depending on the pathology report. 4. We would have the patient follow up in the GI Clinic in 3 to 4 weeks for further evaluation of his hematochezia and discussion of biopsy results. Job ID: [id number]
== END 2019-04-16 13:00 | disposition home or self-care (01) ==
LOC: SDC 08:17
PROVIDERS: ATTEND Internal Medicine
PROC: 0DB28ZX Excision of Middle Esophagus, Via Natural or Artificial Opening Endoscopic, Diagnostic (ICD-10-PCS; principal; 2019-04-16)
PROC: 0DB18ZX Excision of Upper Esophagus, Via Natural or Artificial Opening Endoscopic, Diagnostic (ICD-10-PCS; 2019-04-16)
PROC: 0DBK8ZX Excision of Ascending Colon, Via Natural or Artificial Opening Endoscopic, Diagnostic (ICD-10-PCS; 2019-04-16)
PROC: 0D5P8ZZ Destruction of Rectum, Via Natural or Artificial Opening Endoscopic (ICD-10-PCS; 2019-04-16)
DX: K62.7 Radiation proctitis (principal); B37.81 Candidal esophagitis; D12.2 Benign neoplasm of ascending colon; K64.4 Residual hemorrhoidal skin tags; K64.8 Other hemorrhoids; D64.9 Anemia, unspecified; I10 Essential (primary) hypertension; Z79.899 Other long term (current) drug therapy
CPT/HCPCS: 88305; 88312; 88313; J2704; J3010